=== PATIENT | female | born 1985 ===

== ENCOUNTER → 2018-10-05 | Outpatient (REF) | payer OTHER ==
[2018-10-08 16:05] LABS: HPV HYBRID CAPTURE II Negative (Negative)
== END ==
LOC: M LAB LCGH 12:46
DX: Z12.4 Encounter for screening for malignant neoplasm of cervix (principal)
CPT/HCPCS: 87624; G0123

== ENCOUNTER → 2018-11-30 | Outpatient (REF) | LOC: M LAB LCGH 17:08 | PROVIDERS: ATTEND Family Medicine | DX: D22.39 Melanocytic nevi of other parts of face (principal) ==